=== PATIENT | female | born 1995 | race Two or more races ===

== ENCOUNTER 2016-08-11 12:10 | Emergency (ER) | payer SELFPAY ==
[~2016-08-11] VITALS: Ht 175.3 cm; Wt 58.1 kg
[2016-08-11 12:05] VITALS: BP 110/73
[2016-08-11 12:48] LABS: BASOPHILS % (AUTO) 1.2 % (0.0-2.0); EOSINOPHILS % (AUTO) 2.2 % (0.0-3.0); LYMPHOCYTES % (AUTO) 18.1 % (20.0-45.0); MEAN CORPUSCULAR HEMOGLOBIN 29.2 PG (27.0-31.0); MEAN CORPUSCULAR HGB CONC 33.1 G/DL (32.0-36.0); MEAN CORPUSCULAR VOLUME 88 FL (80-99); MEAN PLATELET VOLUME 8.5 FL (6.5-10.1); MONOCYTES % (AUTO) 4.6 % (1.0-10.0); NEUTROPHILS % (AUTO) 73.9 % (45.0-75.0); PLATELET COUNT 185 K/UL (150-450); RED BLOOD COUNT 4.71 M/UL (4.20-5.40); WHITE BLOOD COUNT 5.7 K/UL (4.8-10.8)
[2016-08-11 13:04] LABS: ACETAMINOPHEN < 10 ug/mL (10-30); ALANINE AMINOTRANSFERASE 10 U/L (3-33); ALCOHOL < 10 mg/dL; ANION GAP 14 (5-15); ASPARTATE AMINO TRANSFERASE 18 U/L (5-40); CARBON DIOXIDE 24 mEQ/L (20-30); CHLORIDE 105 mEQ/L (98-107); CREATININE 0.9 mg/dL (0.5-0.9); GLOMERULAR FILTRATION RATE > 60 mL/min (>60); HEMOLYSIS 3; POTASSIUM 4.1 mEQ/L (3.4-4.9); SODIUM 143 mEQ/L (135-145); TOTAL PROTEIN 6.5 g/dL (6.6-8.7)
[2016-08-11] MEDS ORDERED: LORazepam 0.5mg tab ORAL ONE (14:15)
--- NOTE | 2016-08-11 15:47 | Emergency Room Report ---
History of Present Illness General Chief Complaint: Behavioral Complaint Source: EMS (LISY NELSON) Present Illness HPI The patient is a 21-year-old female with a stated history of bipolar disorder presenting for suicidal ideation. The patient states that she recently moved from [place] and has been feeling helpless. The patient has not taken any psychiatric medications within the past 5 years and has not seen psychiatrist in the same time. The patient states that she wants to cut her wrists and in her life due to feeling helpless. She states she has had this same suicidal ideation in the past when diagnosed with the bipolar disorder. She has never acted on any suicidal ideation. Pt denies: CP, SOB, N, V, F, abd pain, hematuria, constipation, diarrhea, muscle pain, joint pain, rash (LISY NELSON) Allergies: Coded Allergies: No Known Allergies (Unverified , 08/11/16) Patient History Past Medical History: see triage record, psych hx Pertinent Family History: none Last Menstrual Period: 08/11/16 Now: No Reviewed Nursing Documentation: PMH: Agreed, PSxH: Agreed (LISY NELSON) Nursing Documentation-PMH Past Medical History: No History, Except For History Of Psychiatric Problem: Yes (LISY NELSON) Review of Systems All Other Systems: negative except mentioned in HPI (LISY NELSON) Physical Exam Vital Signs Date Time Temp Pulse Resp B/P Pulse Ox O2 Delivery O2 Flow Rate FiO2 08/11/16 11:59 98.4 82 16 110/73 98 Room Air (LISY NELSON.AMarium) Medical Decision Making PA Attestation Dr. Paniagua is my supervising physician. Patient management was discussed with my supervising physician (LISY NELSON) ER Course Contacted Dr. Wasserman for psychiatric evaluation @ 9:20. She cleared the patient. No SI or HI. Discussed with patient follow up. Also advised her and boyfriend regarding stress management. Patient stable for outpatient observation and treatment. (Vladimir Ramey M.D.) Last Vital Signs Date Time Temp Pulse Resp B/P Pulse Ox O2 Delivery O2 Flow Rate FiO2 08/11/16 12:05 16 110/73 98 Room Air 08/11/16 11:59 98.4 82 (LISY NELSON) Last Vital Signs Date Time Temp Pulse Resp B/P Pulse Ox O2 Delivery O2 Flow Rate FiO2 08/12/16 12:47 98.4 71 16 100/52 100 Room Air Status: improved (Vladimir Ramey M.D.) Disposition: HOME, SELF-CARE Condition: Improved Referrals: NOT CHOSEN IPA/,REFERRING (PCP) LISY NELSON Aug 11, 2016 15:47 Vladimir Ramey M.D. Aug 12, 2016 09:20
[2016-08-11 16:00] VITALS: BP 116/71
[2016-08-11 19:03] VITALS: BP 93/58
[2016-08-11 21:45] VITALS: BP 103/59
[2016-08-11 23:44] VITALS: BP 117/63
[2016-08-12 02:14] VITALS: BP 121/67
[2016-08-12 04:00] VITALS: BP 124/73
[2016-08-12 06:29] VITALS: BP 129/67
[2016-08-12] MEDS ORDERED: NKM (09:22)
[2016-08-12 10:00] VITALS: BP 100/52
[2016-08-12 12:47] VITALS: BP 100/52
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
== END 2016-08-12 12:47 | disposition home or self-care (01) ==
LOC: EDBD 12:10 → EMR 12:25
DX: R45.851 Suicidal ideations (principal); F31.9 Bipolar disorder, unspecified; F43.20 Adjustment disorder, unspecified
CPT/HCPCS: 36415; 80053; 80300; 81025; 85025; 99283; G0480; 80329

== ENCOUNTER 2016-08-27 12:08 | Emergency (ER) | payer OTHER ==
[~2016-08-27] VITALS: Ht 175.3 cm; Wt 59.0 kg
[~2016-08-27 12:08] MED LIST: NKM
[2016-08-27 13:08] LABS: APPEARANCE,URINE SLIGHTLY CLOUDY; KETONES,URINE 1+ (NEGATIVE); LEUKOCYTE ESTERASE ,URINE 1+ (NEGATIVE); NITRITE,URINE NEGATIVE (NEGATIVE); PH,URINE 6 (4.5-8.0); PROTEIN,URINE NEGATIVE (NEGATIVE); UROBILINOGEN,URINE NORMAL MG/DL (0.0-1.0)
--- NOTE | 2016-08-27 13:18 | Emergency Room Report ---
History of Present Illness General Chief Complaint: Abdominal Pain Source: Patient Present Illness HPI 21 YO Female presents to the ED c/o of Left-sided adnexal pain, intermittent for several days. pt. reports previous symptoms in the months prior that also last several days to a week. denies spotting, denies fevers, chills, vaginal d/ c or dyspareunia. Pt. denies N/V/C/D. pt. describes her pain as pressure like, and on occasion sharp. Pt. rates her pain from 2/10 when it is pressure like to 8/10 when there is intermittent sharp characteristics. Pt states currently her pain is 4/10 in severity pressure. pt. states that previous episodes have been both on the left and right sides in prior months. Pt. reports no symptoms between monthly episodes. PT. denies , rashes, or trauma/fall. Denies CP, Palpitations, LOC, AMS, dizziness, Changes in Vision, Sensation, paresthesias, or a sudden severe headache. Allergies: Coded Allergies: No Known Allergies (Unverified , 08/11/16) Patient History Past Medical History: see triage record Past Surgical History: none Pertinent Family History: none Last Menstrual Period: 08/13/16 Now: No Immunizations: UTD Reviewed Nursing Documentation: PMH: Agreed, PSxH: Agreed Nursing Documentation-PMH Past Medical History: No Stated History Review of Systems All Other Systems: negative except mentioned in HPI Physical Exam Vital Signs Date Time Temp Pulse Resp B/P Pulse Ox O2 Delivery O2 Flow Rate FiO2 08/27/16 12:18 99.0 97 16 112/66 97 Room Air Sp02 EP Interpretation: reviewed, normal General Appearance: no apparent distress, alert, GCS 15, non-toxic Head: normocephalic, atraumatic Eyes: bilateral eye PERRL, bilateral eye normal inspection ENT: hearing grossly normal, normal pharynx, no angioedema, normal voice Neck: full range of motion, supple/symm/no masses Respiratory: lungs clear, normal breath sounds, speaking full sentences Cardiovascular #1: regular rate, rhythm, no edema Gastrointestinal: normal bowel sounds, non tender, soft, no guarding, no rebound Rectal: deferred Genitourinary: normal inspection, no CVA tenderness, cervix normal, ext genitalia/vag normal, CVA tenderness (L), other - no inguinal LAD, or palpable adnexal masses, no CMT, no external lesions Musculoskeletal: back normal, gait/station normal, normal range of motion, non- tender, no calf tenderness Neurologic: alert, oriented x3, responsive, motor strength/tone normal, sensory intact, speech normal Psychiatric: judgement/insight normal, memory normal, mood/affect normal Skin: normal color, no rash, warm/dry, well hydrated Lymphatic: no adenopathy Medical Decision Making PA Attestation Dr. Ramey is my supervising Physician whom patient management has been discussed with. Diagnostic Impression: Primary Impression: Ovarian cyst Qualified Codes: N83.202 - Unspecified ovarian cyst, left side Additional Impression: Adnexal pain ER Course Pt. presents to the ED c/o of Left-sided adnexal pain, intermittent for several days. pt. reports previous symptoms in the months prior that also last several days to a week. denies spotting, denies fevers, chills, vaginal d/c or dyspareunia. Pt. denies N/V/C/D. Ddx considered but are not limited to Diverticulitis, acute appendicitis,colitis , ovarian torsion, ectopic , PID tubo-ovarian abscess, ovarian cyst. Vital signs: are WNL, pt. is afebrile H&PE are most consistent with possible ovarian cyst, however will also r/o ectopic, UTI and stone. I do not feel this pt. presentation represents torsion or abscess/PID at this time. Pt is non-toxic in appearance and NAD. -- d/w pt. about prophylactically treating for G&C, will send out cultures. ORDERS: -UA: Unremarkable -URINE HCG:Negative Urine G & C : Pending ED INTERVENTIONS: - 600mg IBU PO -250mg IM Rocephin -d/w pt. to follow up with OBGYN, to return to ED with worsening or new symptoms. DISCHARGE: At this time pt. is stable for d/c to home. Will provide printed patient care instructions, and any necessary prescriptions. Care plan and follow up instructions have been discussed with the patient prior to discharge. Labs Test 08/27/16 12:35 Urine Color Yellow Urine Appearance Slightly cloudy Urine pH 6 (4.5-8.0) Urine Specific [place] 1.020 (1.005-1.035) Urine Protein Negative (NEGATIVE) Urine Glucose (UA) Negative (NEGATIVE) Urine Ketones 1+ (NEGATIVE) Urine Occult Blood Negative (NEGATIVE) Urine Nitrite Negative (NEGATIVE) Urine Bilirubin Negative (NEGATIVE) Urine Urobilinogen Normal MG/DL (0.0-1.0) Urine Leukocyte Esterase 1+ (NEGATIVE) Urine HCG, Qualitative Negative Last Vital Signs Date Time Temp Pulse Resp B/P Pulse Ox O2 Delivery O2 Flow Rate FiO2 08/27/16 12:18 99.0 97 16 112/66 97 Room Air Disposition: HOME, SELF-CARE Condition: Stable Scripts Doxycycline Hyclate* (VIBRAMYCIN*) 100 Mg Capsule 100 MG ORAL EVERY 12 HOURS for 7 Days, #14 CAP 0 Refills Prov: Edie Florence 08/27/16 Ibuprofen* (MOTRIN*) 600 Mg Tablet 600 MG ORAL THREE TIMES A DAY, #30 TAB 0 Refills Prov: Edie Florence 08/27/16 Referrals: NOT CHOSEN IPA/MD,REFERRING (PCP) Patient Instructions: Ovarian Cyst Additional Instructions: Take medications as directed. Follow up with OBGYN in 3-5 days Return sooner to ED if new symptoms occur, or current symptoms become worse. - Please note that this Emergency Department Report was dictated using [employer] engineering analyst technology software, occasionally this can lead to erroneous entry secondary to interpretation by the dictation equipment. Edie Florence Aug 27, 2016 13:18
[2016-08-27] MEDS ORDERED: Lidocaine 1% MPF 10mg/ml 5ml ONE (13:20)
[2016-08-27 13:31] LABS: RBC,URINE 0 /HPF (0 - 2); SQUAMOUS EPITHELIAL CELL,UR FEW /LPF (NONE/OCC)
[2016-08-27] MEDS ORDERED: IBUPROFEN600 MG ORAL (13:33)
[2016-08-27] MEDS ORDERED: VIBRAMYCIN100 MG ORAL (13:37)
[2016-08-27 13:45] VITALS: BP 127/88
== END 2016-08-27 13:47 | disposition home or self-care (01) ==
LOC: EMR 12:30
DX: R10.2 Pelvic and perineal pain (principal)
CPT/HCPCS: 81003; 81025; 96372; 99284; J0696